=== PATIENT | female | born 1945 | race Caucasian/White ===

== ENCOUNTER → 2018-03-06 | Day surgery (SDC) | payer MEDICARE, BC ==
[2018-03-05 15:06] LABS: BASOPHILS # (AUTO) 0.1 (0.0-0.1); BASOPHILS % 0.5 % (0.0-1.0); EOSINOPHILS # (AUTO) 0.3 (0.0-0.4); EOSINOPHILS % 2.9 % (0.0-6.0); HEMATOCRIT 43.5 % (34.2-44.1); HEMOGLOBIN 14.6 g/dL (12.0-16.0); LYMPHOCYTES # (AUTO) 0.9 (1.0-3.2); LYMPHOCYTES % 8.6 % (18.0-39.1); MEAN CORPUSCULAR HGB CONC 33.6 g/dL (31-35); MEAN CORPUSCULAR VOLUME 92.4 fL (81-99); MONOCYTES # (AUTO) 0.8 (0.2-0.8); MONOCYTES % 7.2 % (4.4-11.3); NEUTROPHILS # (AUTO) 8.8 (2.1-6.9); NEUTROPHILS % 80.4 % (38.7-80.0); PLATELET COUNT 249 x10e3/uL (140-360); RED BLOOD COUNT 4.71 x10e6/uL (3.6-5.1); RED CELL DISTRIBUTION WIDTH 13.3 % (11.7-14.4)
[2018-03-05 15:18] LABS: ALBUMIN 3.7 g/dL (3.5-5.0); ALBUMIN/GLOBULIN RATIO 0.9 (0.8-2.0); ANION GAP 15.7 mmol/L (8-16); CALCIUM 10.6 mg/dL (8.4-10.2); CHOL/HDL RATIO 5.4 (3.0-3.6); CREATININE, SERUM 1.67 mg/dL (0.57-1.11); POTASSIUM 4.7 mmol/L (3.5-5.1)
[2018-03-06] VITALS (13 sets, daily range): BP systolic 100–138; BP diastolic 45–91
[~2018-03-06] VITALS: Ht 160 cm; Wt 102.1 kg
[~2018-03-06] MED LIST: ALPRAZOLAM 0.5 MG TAB ONE; AMBIEN CR12.5 MG PO; AMBIEN10 MG PO; ARMOUR THYROID60 MG PO; ASPIRIN 325 MG TAB ONE; CLOPIDOGREL BISULFATE 75 MG TAB ONE; DIPHENHYDRAMINE HCL 25 MG CAP ONE; FENTANYL CITRATE/PF 100MCG/2 ML INJ ONE; HEPARIN SOD/SOD CHLORIDE 2,000 ML ONE; IOPAMIDOL 300MG/ML 100 ML INFUS..BTL IV ONE; LIDOCAINE HCL 2% LOCAL 20 ML VIAL ONE; METFORMIN HCL500 MG PO; MIDAZOLAM HCL 2 MG/2 ML VIAL ONE; SODIUM CHLORIDE 0.9% 1000ML 1,000 ML ONE; VERAPAMIL HCL 2.5 MG/ML 2 ML VIAL ONE; WELLBUTRIN XL300 MG PO
--- NOTE | 2018-03-06 15:04 | Operative Report ---
DATE OF PROCEDURE: March 06, 2018 PROCEDURE: Cardiac catheterization report. INDICATIONS: Chest pain and severe aortic stenosis, pending TAVR. PRE-SEDATION ASSESSMENT: Medical history, social history, and previous experience with anesthesia was reviewed as documented in the preoperative record. Results of relevant diagnostic studies were reviewed. Plan, choice of anesthesia, risks, complications, benefits and alternatives were discussed with the patient. CONSENT: The benefits, risks, complications, and alternatives to the procedure were discussed with the patient and informed consent was obtained from patient prior to the procedure. MEDICATIONS: Please see nursing notes for medications administered during the procedure. PROCEDURE: Patient was brought to the cardiac catheterization laboratory in a fasting state. Right wrist was prepped and draped in a sterile fashion, 1% lidocaine was used to infiltrate the right wrist over the right radial artery. A 6-Ivorian sheath was placed in the right radial artery using the Seldinger technique. Coronary angiography was performed using a [employer] preformed catheter to engage both RCA and the LCA. Multiple orthogonal views were obtained of each coronary artery. All catheters were removed over a guidewire. After reviewing the angiographic images, we decided to proceed with a PCI of following lesions. A 90% mid RCA lesion, type B1, for the PCI of the mid RCA. Anticoagulation was achieved using IV and IA boluses of heparin to maintain ACT near 300. Dual antiplatelets were administered in the slab tripper with aspirin 325 and clopidogrel 600 mg orally prior to PCI for the PCI of RCA. Initially we used an Ikari right 6-Ivorian catheter as a guide. We were able to wire the lesion; however, the guide support was very poor and we were not able to pass any of the equipment without guide disengaging. At this point, we decided to change guides to an Ikari left 6-Ivorian guiding catheter which was difficult to engage; however, once engaged, provided excellent support for this case. Lesion was crossed using a Choice PT 0.014-inch wire. Direct stenting was performed using a Synergy 2.5 x 12-mm drug-eluting stent deployed at 11 atmospheres. This provided excellent angiographic results without any complications. The exit site was then closed using a TR Band. ESTIMATED BLOOD LOSS: Approximately 50 mL. SIGNIFICANT FINDINGS 1. Left main coronary artery: Large caliber, normal. 2. LAD: Large vessel, goes to the apex. Diag 1 is a large vessel. There is a 60% lesion of the mid LAD just after the bifurcation of diagonal 1. There is 50% lesion of the distal LAD. 3. Left circumflex: It is a large, codominant left circumflex. There are 2 significant OM branches as well as several posterolateral branches distally. There are luminal irregularities throughout, however no obstructive coronary artery disease. 4. RCA: Large, codominant RCA. There is a medium-sized RPDA system distally and a very small RPL. There is a 90% lesion of the mid RCA just after takeoff of an acute marginal branch. COMPLICATIONS: None. SPECIMEN REMOVED: None. IMPLANTS: Synergy 2.5 x 12 mm drug-eluting stent. ESTIMATED BLOOD LOSS: 50 mL. RECOMMENDATIONS 1. Usual post PCI care until TR Band removal. 2. Transferred to observation for 6 hours post PCI. 3. Patient can be discharged home if recovery period is uneventful. 4. Call the office for followup in 2 weeks post procedure. Job#: [id number] MATTY
== END | disposition home or self-care (01) ==
LOC: CATH LAB 07:56
PROVIDERS: ATTEND Internal Medicine Interventional Cardiology
DX: I25.10 Atherosclerotic heart disease of native coronary artery without angina pectoris (principal); I35.0 Nonrheumatic aortic (valve) stenosis; E11.9 Type 2 diabetes mellitus without complications; F32.9 Major depressive disorder, single episode, unspecified; F41.0 Panic disorder [episodic paroxysmal anxiety]; Z01.812 Encounter for preprocedural laboratory examination; Z79.84 Long term (current) use of oral hypoglycemic drugs; Z68.39 Body mass index [BMI] 39.0-39.9, adult
CPT/HCPCS: 93454; C9600; 36415; 80053; 80061; 82948; 85025; 85347; 92928; C1874; C1887; J2001; J2250; J7030; Q9967

== ENCOUNTER → 2018-06-24 | Outpatient (CLI) | payer MEDICARE, BC ==
[~2018-06-24] MED LIST changes: -ALPRAZOLAM 0.5 MG TAB ONE; -ASPIRIN 325 MG TAB ONE; -CLOPIDOGREL BISULFATE 75 MG TAB ONE; -DIPHENHYDRAMINE HCL 25 MG CAP ONE; -FENTANYL CITRATE/PF 100MCG/2 ML INJ ONE; -HEPARIN SOD/SOD CHLORIDE 2,000 ML ONE; -IOPAMIDOL 300MG/ML 100 ML INFUS..BTL IV ONE; -LIDOCAINE HCL 2% LOCAL 20 ML VIAL ONE; -MIDAZOLAM HCL 2 MG/2 ML VIAL ONE; -SODIUM CHLORIDE 0.9% 1000ML 1,000 ML ONE; -VERAPAMIL HCL 2.5 MG/ML 2 ML VIAL ONE
== END ==
LOC: MRI 09:59
PROVIDERS: ATTEND Internal Medicine Interventional Cardiology
DX: I63.89 Other cerebral infarction (principal)

== ENCOUNTER 2019-09-07 18:18 | Inpatient (IN) | payer MEDICARE, BC ==
[~2019-09-07] VITALS: Ht 160 cm; Wt 94.8 kg
--- OUTSIDE RECORDS SUMMARY | 2019-09-07 18:21 | XMS REPORT | Encounter Summary ---
Author Organization Unknown Address [address] [place] [address] Phone [phone] Care Team Providers Care Labor Commissioner Name Role Phone Dr. Asaf Bishop 3 [phone] Jessica Lau 60 [phone] Mildred Damon MD 108 [phone] Reason for Visit Left knee pain/problem Instructions 1. Influenza vaccination declined 2. Pain in left knee XR, knee, 3 view Discussion Note await xr Patient educational handouts: No information available. Plan of Care Patient Instructions movement within limits pain/prn otc tylenol/advil/rtc 2 weeks if remains symptomatic Reminders Provider Appointments None recorded. Lab None recorded. Referral None recorded. Procedures None recorded. Surgeries None recorded. Imaging XR, Knee, 3 View 07/03/2019 [facility] Medications Name Start Date [employer] Thyroid 60 mg tablet Take 1 tablet every day by oral route for 90 days. bupropion HCl SR 150 mg tablet,12 hr sustained-release Take 1 tablet every day by oral route for 90 days. clopidogrel 75 mg tablet Take 1 tablet every day by oral route for 30 days. dicyclomine 10 mg capsule Take 1 capsule every day by oral route for 90 days. metformin 500 mg tablet Take 1 tablet every day by oral route for 90 days. Uribel 118 mg-10 mg-40.8 mg-36 mg capsule Take 1 tablet every day by oral route as needed for 3 days. zolpidem ER 12.5 mg tablet,extended release,multiphase Take 1 tablet every day by oral route for 90 days. Medications Administered None recorded. Vitals Height Weight BMI Blood Pressure 5 ft 1.6 in (1) 150/70 mm[Hg] (2) 110/70 mm[Hg] Results Lab Results None recorded. Allergies Code Code System Name Reaction Severity Status Onset NKDA Problems Name Status Onset Date Source Hypothyroidism Active 09/06/2018 Type 2 Diabetes Mellitus Active 09/06/2018 Chronic Fatigue Syndrome Active 09/06/2018 Insomnia Active 09/06/2018 Diverticulosis of Intestine Active 09/06/2018 Procedures Date Name Performed by 06/13/2018 Transcatheter Aortic Valve Replacement Information not available 08/13/2017 Cardiac Surgery Information not available Colonoscopy with Biopsy Information not available 07/03/2019 XR, Knee, 3 View [facility] [place] [address] [place] [address] (Work Place) Vaccine List Vaccine Type pneumococcal, unspecified formulation 05/13/2018 Social History Tobacco Smoking Status Never Smoker Past Encounters 07/03/2019 Influenza Vaccination Declined; Pain in Left Knee Mike Mixon MD: [address] [place] [address], Ph. History of Present Illness Note:2 week h/o L knee pain /swelling,no associated trauma,the swelling has resolved<div>with pain 7/10 on standing and palpation,has not reqd pain meds< /div> Review of Systems:ROS as noted in the HPI Review of Systems None recorded. Physical Exam Musculoskeletal and Joint Exam Reported By: Patient Musculoskeletal System: Left Knee: pain on palpation; tender 1+ medial tibial condyle
--- OUTSIDE RECORDS SUMMARY | 2019-09-07 18:21 | XMS REPORT ---
Author Author [facility] Address Unknown Phone Unavailable Care Team Providers Care Contractor General Building Name Role Phone Unavailable Unavailable Problems This patient has no known problems. Allergies, Adverse Reactions, Alerts This patient has no known allergies or adverse reactions. Medications This patient has no known medications. Encounters Start Date/Time End Date/Time Encounter Type Admission Type Attending Clinicians Care Facility Care Department Encounter ID 2019-09-05 18:18:00 2019-09-05 18:18:00 Outpatient E [facility] [id number]
--- OUTSIDE RECORDS SUMMARY | 2019-09-07 18:21 | XMS REPORT | Encounter Summary ---
Author Organization Unknown Address [address] [place] [address] Phone [phone] Care Team Providers Care Geodesist Name Role Phone Dr. Asaf Bishop 3 [phone] Jessica Lau 60 [phone] Mildred Damon MD 108 [phone] Reason for Visit diabetic foot exam; Left toe problem; AWV Annual Wellness Visit Female (VFP); mass Instructions 1. Adult health examination 2. Body mass index 40+ - severely obese body mass index: care instructions learning about healthy weight 3. Advance directive discussed with patient advance care planning: care instructions 4. Depression screening 5. Alcohol consumption screening learning about alcohol misuse 6. Insomnia 7. Onychomycosis of toenails Penlac 8 % topical solution 8. Type 2 diabetes mellitus diabetic ophthalmology referral - please schedule & contact our patient./FX RESULTS TO [phone]. Thank you CMP, serum or plasma lipid panel, serum HbA1c (hemoglobin A1c), blood 9. Screening mammography mammogram: about this test MAMMO, screening, digital, bilateral - please schedule & contact our patietn. thank you 10. Postmenopausal state learning about healthy weight bone density referral - please schedule & contact our patietn. thank you 11. Screening for disorder hepatitis C virus RNA, quant, PCR, serum or plasma 12. Screening for malignant neoplasm of colon 13. Lipoma of skin 14. At risk for falls preventing falls: care instructions Discussion Note: None recorded. Plan of Care Reminders Provider Appointments Return to Office on or around 12/04/2018 Asaf Maloney MD Lab CMP, Serum or Plasma 09/06/2018 [facility] Lipid Panel, Serum 09/06/2018 [facility] HbA1C (Hemoglobin a1C), Blood 09/06/2018 [facility] Hepatitis C Virus RNA, Quant, PCR, Serum or Plasma 09/06/2018 [facility] Referral Bone Density Referral 09/06/2018 [facility] Diabetic Ophthalmology Referral 09/06/2018 [facility] Procedures None recorded. Surgeries None recorded. Imaging MAMMO, Screening, Digital, Bilateral 09/06/2018 [facility] Medications Name Start Date [place] Thyroid 60 mg tablet Take 1 tablet every day by oral route for 90 days. clopidogrel 75 mg tablet Take 1 tablet every day by oral route for 30 days. metformin 500 mg tablet Take 1 tablet every day by oral route for 90 days. Penlac 8 % topical solution APPLY TO THE AFFECTED AREA(S) BY TOPICAL ROUTE ONCE DAILY PREFERABLY AT BEDTIME OR 8 HOURS BEFORE WASHING zolpidem ER 12.5 mg tablet,extended release,multiphase Take 1 tablet every day by oral route for 90 days. Medications Administered None recorded. Vitals Height Weight BMI Blood Pressure 5 ft 1.6 in 220 lbs 40.8 kg/m2 (1) 144/80 mm[Hg] (2) 126/70 mm[Hg] Lab Results None recorded. Allergies Code Code System Name Reaction Severity Status Onset NKDA Problems Name Status Onset Date Source Hypothyroidism Active 09/06/2018 Type 2 Diabetes Mellitus Active 09/06/2018 Chronic Fatigue Syndrome Active 09/06/2018 Insomnia Active 09/06/2018 Diverticulosis of Intestine Active 09/06/2018 Procedures Date Name Performed by 06/13/2018 Transcatheter Aortic Valve Replacement Information not available 08/13/2017 Cardiac Surgery Information not available 08/13/2016 Colonoscopy with Biopsy Information not available 09/06/2018 MAMMO, Screening, Digital, Bilateral [facility] [address] [place] [address] (Work Place) Vaccine List Vaccine Type pneumococcal, unspecified formulation 05/13/2018 Social History Smoking Status Never Smoker Past Encounters 09/06/2018 Adult Health Examination; Body Mass Index 40+ - Severely Obese; Advance Directive Discussed with Patient; Depression Screening; Alcohol Consumption Screening; Insomnia; Onychomycosis of Toenails; Type 2 Diabetes Mellitus; Screening Mammography; Postmenopausal State; Screening for Disorder; Screening for Malignant Neoplasm of Colon; Lipoma of Skin; At Risk for Falls Asaf Maloney MD: [address] [place] [phone], Ph. History of Present Illness Mini Cog Reported By: Patient Functional Ability: Personal/Social/ Draw a clock and write in the numbers in the correct place, and set the time to 10 minutes after 11 o'clock was completed correctly? Yes, 3 word recall: Your nurse or doctor will ask you to remember 3 words. In 5 minutes, they will ask you to repeat them. Patient recalled 2 words Note:Coming to establish care. Hx of dm. Last a1c 7.2 (3 months ago). BS at home 120s fasting. No side effects with meds.<div>Mass in the L side of the abdomen since 1 week ago. Non tender. No erythema.</div><div>L great toenail white spot since a few months ago.</div> Review of Systems Comprehensive General Adult ROS Reported By: Patient Constitutional: Constitutional: no fever Eyes: Eyes: no vision change ENMT: Ears: no ear pain. Nose: no sinus problems. Mouth/Throat: no sore throat Cardiovascular: Cardiovascular: no chest pain, no palpitations, no lightheadedness Respiratory: Respiratory: no cough, no wheezing, no shortness of breath Gastrointestinal: Gastrointestinal: no abdominal pain, no nausea, no vomiting, no constipation, no diarrhea Musculoskeletal: Musculoskeletal: no muscle aches, no swelling in the extremities Integumentary: Skin: growths/lesions Neurologic: Neurologic: no loss of consciousness, no headaches Psychiatric: Psych: no depression, no alcohol abuse, no anxiety, no suicidal thoughts Endocrine: Endocrine: no fatigue Physical Exam General Adult Exam (male) Reported By: Patient Constitutional: General Appearance: healthy-appearing, morbidly obese. Level of Distress: NAD. Ambulation: ambulating normally Psychiatric: Insight: good judgement. Mental Status: active and alert, normal mood, normal affect. Orientation: to time, to place, to person. Memory: recent memory normal, remote memory normal Eyes: Lids and Conjunctivae: non-injected, no discharge. EOM: EOMI ENMT: Ears: TMs clear. Nose: no sinus tenderness. Lips, Teeth, and Gums: no mouth or lip ulcers. Oropharynx: moist mucous membranes Neck: Neck: supple, trachea midline. Thyroid: no enlargement, non-tender Lungs: Auscultation: breath sounds normal Cardiovascular: Heart Auscultation: RRR, normal S1, normal S2, no murmurs. Neck vessels: no carotid bruits. Pulses including femoral / pedal: normal throughout Abdomen: Inspection and Palpation: soft, non-distended, no tenderness, no guarding Musculoskeletal:: Motor Strength and Tone: normal, normal tone. Joints, Bones, and Muscles: normal movement of all extremities. Extremities: no edema Neurologic: Gait and Station: normal gait Skin: Inspection and palpation: no rash, no lesions; L side of the abdomen: superficial mass, 2 cms in diameter, soft, mobile, non tender. Nails: ; L great toe onychomycosis
[2019-09-07] MEDS ORDERED: MOBIC15 MG PO (18:37)
[2019-09-07] MEDS ORDERED: CLOPIDOGREL75 MG PO (18:37)
[2019-09-07] MEDS ORDERED: CYCLOBENZAPRINE10 MG PO (18:37)
[2019-09-07] MEDS ORDERED: ZOLPIDEM TART12.5 MG PO (18:37)
[2019-09-07] MEDS ORDERED: DICYCLOMINE HCL10 MG PO (18:37)
[2019-09-07] MEDS ORDERED: ASPIR 8181 MG PO (18:41)
[2019-09-07] MEDS ORDERED: ATORVASTATIN CA20 MG PO (18:41)
[2019-09-07] MEDS ORDERED: AMLODIPINE BESYL5 MG PO (18:41)
[2019-09-07] MEDS ORDERED: PANTOPRAZOLE 40 MG 10ML VIAL IV STA (18:45)
[2019-09-07] MEDS ORDERED: SODIUM CHLORIDE 0.9% 1000ML 1,000 ML IV STA (18:45)
[2019-09-07 18:57] LABS: BASOPHILS % 0.3 % (0.0-1.0); EOSINOPHILS # (AUTO) 0.1 (0.0-0.4); HEMATOCRIT 37.6 % (34.2-44.1); LYMPHOCYTES # (AUTO) 0.6 (1.0-3.2); LYMPHOCYTES % 4.9 % (18.0-39.1); MEAN CORPUSCULAR HGB CONC 31.9 g/dL (31-35); MONOCYTES # (AUTO) 0.7 (0.2-0.8); MONOCYTES % 5.9 % (4.4-11.3); NEUTROPHILS # (AUTO) 10.6 (2.1-6.9); NEUTROPHILS % 87.5 % (38.7-80.0); PLATELET COUNT 223 x10e3/uL (140-360); RED CELL DISTRIBUTION WIDTH 13.8 % (11.7-14.4)
[2019-09-07 19:30] LABS: INR 0.92; PROTHROMBIN TIME 12.9 seconds (11.9-14.5)
[2019-09-07 19:31] LABS: PARTIAL THROMBOPLASTIN TIME 25.2 seconds (23.8-35.5)
[2019-09-07 19:32] LABS: ALBUMIN 3.3 g/dL (3.5-5.0); ALBUMIN/GLOBULIN RATIO 1.1 (0.8-2.0); ANION GAP 16.2 mmol/L (8-16); CALCIUM 9.3 mg/dL (8.4-10.2); CREATININE, SERUM 1.64 mg/dL (0.57-1.11); POTASSIUM 4.2 mmol/L (3.5-5.1)
[2019-09-07] MEDS: SODIUM CHLORIDE 0.9% 1000ML 1,000 ML IV SCH (20:50)
[2019-09-07 20:55] LABS: BILIRUBIN,URINE NEGATIVE (NEGATIVE); CLARITY,URINE CLEAR (CLEAR); COLOR,URINE YELLOW (YELLOW); KETONES,URINE NEGATIVE (NEGATIVE); LEUKOCYTE ESTERASE ,URINE NEGATIVE (NEGATIVE); NITRITE,URINE NEGATIVE (NEGATIVE); PROTEIN,URINE DIPSTICK NEGATIVE (NEGATIVE); URINE UROBILINOGEN 0.2 mg/dL (0.2 - 1)
[2019-09-07 21:18] LABS: BACTERIA,URINE RARE /HPF; EPITHELIAL CELLS,URINE RARE /LPF; RBC,URINE 0-5 /HPF (0-5); WBC,URINE (MAN) 0-5 /HPF (0-5)
[2019-09-08] VITALS (8 sets, daily range): BP systolic 127–172; BP diastolic 69–78
[2019-09-08 02:01] LABS: HEMATOCRIT 31.1 % (34.2-44.1); HEMOGLOBIN 10.1 g/dL (12.0-16.0)
[2019-09-08 05:06] LABS: BASOPHILS % 0.5 % (0.0-1.0); EOSINOPHILS # (AUTO) 0.2 (0.0-0.4); EOSINOPHILS % 2.2 % (0.0-6.0); HEMATOCRIT 34.1 % (34.2-44.1); HEMOGLOBIN 10.8 g/dL (12.0-16.0); MEAN CORPUSCULAR HEMOGLOBIN 29.8 pg (28-32); MEAN CORPUSCULAR HGB CONC 31.7 g/dL (31-35); MEAN CORPUSCULAR VOLUME 94.2 fL (81-99); MONOCYTES # (AUTO) 0.7 (0.2-0.8); MONOCYTES % 8.5 % (4.4-11.3); NEUTROPHILS # (AUTO) 6.4 (2.1-6.9); NEUTROPHILS % 76.4 % (38.7-80.0); PLATELET COUNT 207 x10e3/uL (140-360); RED BLOOD COUNT 3.62 x10e6/uL (3.6-5.1); RED CELL DISTRIBUTION WIDTH 13.8 % (11.7-14.4)
[2019-09-08 05:19] LABS: ANION GAP 15.5 mmol/L (8-16); CREATININE, SERUM 1.44 mg/dL (0.57-1.11); POTASSIUM 4.5 mmol/L (3.5-5.1)
[2019-09-08] MEDS: SODIUM CHLORIDE 0.9% 1000ML 1,000 ML IV SCH ×3 (05:33→17:52)
--- NOTE | 2019-09-08 07:00 | NUR ---
BEDSIDE SHIFT REPORT RECEIVED FROM THE CROP SETTING OUT MACHINE OPERATOR RN. EDUCATED PT ABOUT FALL PRECAUTIONS. CALL LIGHT WITH IN EASY REACH. INSTRUCTED PT TO USE CALL LIGHT FOR ALL THE NEEDS. PT VERBALIZED UNDERSTANDING. . BED IS LOW AND LOCKED. SIDE RAILS X2. BED ALARM IS ON. PT DENIES NEEDS AT THIS TIME. Addendum: 09/08/19 at 1522 by Gregory Brady RN PLEASE DISREGARD THIS NOTE. WRONG PT
--- NOTE | 2019-09-08 07:13 | NUR ---
received report from MELIDA Suh, will continue to monitor.
--- NOTE | 2019-09-08 09:00 | NUR ---
PT RECEIVED FROM ER. MARIE. EDUCATED PT ABOUT FALL PRECAUTIONS. CALL LIGHT WITH IN EASY REACH. INSTRUCTED PT TO USE CALL LIGHT FOR ALL THE NEEDS. PT VERBALIZED UNDERSTANDING. FAMILY MEMBER AT BEDSIDE. BED IS LOW AND LOCKED. SIDE RAILS X2. PT DENIES NEEDS AT THIS TIME.
[2019-09-08] MEDS: PANTOPRAZOLE 40 MG 10ML VIAL IV SCH ×2 (09:12→17:52)
--- NOTE | 2019-09-08 10:00 | NUR ---
DR. Moira JOHNSON AT BEDSIDE.
--- NOTE | 2019-09-08 10:15 | NUR ---
PAGED DR. Trevon JOHNSON. COLONOSCOPY TOMORROW. START GO LYTELY NOW PER THE DR. MUSE LIQUID DIET.
[2019-09-08] MEDS ORDERED: DEXTROSE 50% SYRINGE 50 ML IV PRN (10:30)
[2019-09-08] MEDS ORDERED: PEG (High)/E-LYTE SOLN 4,000 ML BTL PO ONE (11:00)
[2019-09-08] MEDS: INSULIN REGULAR, HUMAN 100 UNIT/1 ML 3ML VIAL SQ SCH ×3 (11:30→21:00)
--- NOTE | 2019-09-08 14:54 | NUR ---
JORGE MCFADDEN OBTAINED SIGNATURES AND PROVIDED LESA, WILL TURN INTO PACU FOR FILING PURPOSES
[2019-09-08 16:16] LABS: HEMATOCRIT 35.2 % (34.2-44.1); HEMOGLOBIN 11.2 g/dL (12.0-16.0)
--- NOTE | 2019-09-08 19:00 | NUR ---
BEDSIDE SHIFT REPORT GIVEN TO THE CLEAN ROOM OPERATOR RN. PT DENIED FURTHER NEEDS.
[2019-09-08] MEDS: ATORVASTATIN 20 MG TAB PO SCH (21:00)
[2019-09-09] MEDS: SODIUM CHLORIDE 0.9% 1000ML 1,000 ML IV SCH ×3 (03:04→20:56)
[2019-09-09 04:40] VITALS: BP 128/62
--- NOTE | 2019-09-09 07:00 | NUR ---
BEDSIDE SHIFT REPORT RECEIVED FROM THE REPAIRER PUMP RN. EDUCATED PT ABOUT FALL PRECAUTIONS. CALL LIGHT WITH IN EASY REACH. INSTRUCTED PT TO USE CALL LIGHT FOR ALL THE NEEDS. PT VERBALIZED UNDERSTANDING. BED IS LOW AND LOCKED. SIDE RAILS X2. PT DENIES NEEDS AT THIS TIME.
[2019-09-09] MEDS ORDERED: CITRATE OF MAGNESIA 300ML BOTTLE PO ONE (07:30)
[2019-09-09] MEDS: INSULIN REGULAR, HUMAN 100 UNIT/1 ML 3ML VIAL SQ SCH ×4 (07:30→21:00)
[2019-09-09 08:00] VITALS: BP 136/61
[2019-09-09] MEDS: PANTOPRAZOLE 40 MG 10ML VIAL IV SCH ×2 (08:04→17:44)
[2019-09-09 08:22] VITALS: BP 136/61
--- NOTE | 2019-09-09 11:00 | NUR ---
RAC IV REMOVED DUE TO LEAKING. NEW IV STARTED BY OUTBOARD MOTOR INSPECTOR RIGHT FORE ARM 20 G. PT DENIED FURTHER NEEDS.
[2019-09-09 12:00] VITALS: BP 166/87
--- NOTE | 2019-09-09 12:30 | NUR ---
PT OFF UNIT FOR PROCEDURE IN SAFE CONDITION.
[2019-09-09] MEDS ORDERED: LIDOCAINE HCL 2% LOCAL INJ 5 ML SDV VIAL INJ ONE (12:50)
[2019-09-09] MEDS ORDERED: PROPOFOL IV EMULSION 10 MG/ML 20 ML VIAL ONE (12:50)
--- NOTE | 2019-09-09 14:00 | NUR ---
RIGHT FORE ARM IV REMOVED. TIP INTACT . DRESSING APPLIED. NEW IV STARTED LH 20G. PT DENIED FURTHER NEEDS.
--- NOTE | 2019-09-09 15:03 | NUR ---
PT BACK TO UNIT AFTER PROCEDURE. GI SOFT DIET PER DR. Trevon JOHNSON.
[2019-09-09 16:00] VITALS: BP 153/85
--- NOTE | 2019-09-09 16:30 | NUR ---
PT IS SHIVERING AT THE TIME OF ARRIVAL AFTER COLONOSCOPY. PAGED DR. JOHNSON AND INFORMED THE SAME.
[2019-09-09] MEDS: METFORMIN HCL 500 MG TAB PO SCH (16:35)
[2019-09-09] MEDS: DICYCLOMINE HCL 10 MG CAP PO SCH (16:36)
[2019-09-09] MEDS: THYROID 60 MG TAB PO SCH (16:36)
--- NOTE | 2019-09-09 19:00 | NUR ---
BEDSIDE SHIFT REPORT GIVEN TO THE GRAPHICS SOFTWARE ENGINEER RN. PT DENIED FURTHER NEEDS.
[2019-09-09] MEDS ORDERED: FENTANYL CITRATE/PF 100MCG/2 ML INJ IV ONE (19:08)
[2019-09-09] MEDS ORDERED: MIDAZOLAM HCL 2 MG/2 ML VIAL INJ ONE (19:08)
[2019-09-09] MEDS: ATORVASTATIN 20 MG TAB PO SCH (19:39)
[2019-09-09 20:00] VITALS: BP 169/85
--- NOTE | 2019-09-09 21:04 | Operative Report ---
DATE OF PROCEDURE: 09/09/2019 SURGEON: Franco Garcia MD PROCEDURES: EGD with biopsies and colonoscopy with polypectomy and biopsies. INDICATION FOR EGD: Heartburn, indigestion, history of dark stools. INDICATIONS FOR COLONOSCOPY: Rectal bleeding. MEDICATIONS: The patient was done under MAC, please see anesthesiologist's note. PROCEDURE IN DETAIL: With the patient in the left lateral decubitus position, a flexible fiberoptic Olympus gastroscope was introduced into the esophagus under direct visualization without any difficulty. There was some patchy erythema noted in distal esophagus. A Schatzki ring was noted at the GE junction that was traversed with ease and the scope was advanced into the stomach traversing a small hiatal hernia. The mucosa overlying the antrum and the body revealed some patchy erythema and moderate edema, and biopsies were obtained and sent to stain for H. pylori. The pylorus was of normal contour and shape, was intubated with ease and the scope was advanced all the way to the second portion of the duodenum. Biopsies were obtained from the proximal second portion and duodenal bulb to rule out sprue. The scope was then withdrawn back into the stomach and retroflexed, and mucosa overlying the fundus and the cardia appeared to be within normal limits. The scope was then straightened out, it was subsequently withdrawn, and the patient tolerated the procedure well. IMPRESSION: 1. Distal esophagitis. 2. Schatzki ring. 3. Small hiatal hernia. 4. Gastritis, biopsied, biopsies sent to stain for Helicobacter pylori. 5. Rule out sprue. PLAN: Follow up histology. Initiate Protonix 40 mg 1 p.o. q.a.m. before meals. The patient was then turned around and after adequate lubrication of the anal canal, a flexible fiberoptic Olympus colonoscope was inserted into the rectum with ease and advanced all the way to the cecum. The ileocecal valve was somewhat lobular and was biopsied. The cecum overall appeared to be within normal limits. An approximately 1.2 cm submucosal mass noted in the proximal ascending colon with yellowish over hue, suspicious for lipoma and was biopsied. A minute polyp in the proximal ascending colon was removed per hot biopsy forceps and the site was hemoclipped x1. Diverticular disease was noted throughout the colon including ascending colon, transverse, descending, and sigmoid. An approximately 1 cm sessile polyp was removed per snare electrocautery from the descending colon. The rectum grossly appeared to be within normal limits. The scope was then retroflexed into the distal rectum and small internal hemorrhoids were noted, none of which was actively bleeding. The scope was then straightened out, it was subsequently withdrawn, and the patient tolerated the procedure well. IMPRESSION: 1. Pandiverticulosis. 2. Rule out lipoma, ileocecal valve. 3. Rule out lipoma, ascending colon. 4. Ascending colon polyp, hot biopsied and site hemoclipped x1. 5. Descending colon polyp approximately 1 cm in size, sessile, removed per snare electrocautery. 6. Internal hemorrhoids, none actively bleeding. PLAN: Follow up histology. Initiate high-fiber, low-fat diet. Initiate high-fiber supplement. Timing of followup colonoscopy pending pathology report. Franco Garcia MD [facility] [place] /[id number] cc: Edgar Garcia MD
[2019-09-10] VITALS: BP 121/61
[2019-09-10] MEDS: SODIUM CHLORIDE 0.9% 1000ML 1,000 ML IV SCH (03:20)
[2019-09-10 04:00] VITALS: BP 119/56
--- NOTE | 2019-09-10 07:00 | NUR ---
BEDSIDE SHIFT REPORT RECEIVED FROM THE PREMIUM CARD CANCELLATION CLERK RN. EDUCATED PT ABOUT FALL PRECAUTIONS. CALL LIGHT WITH IN EASY REACH. INSTRUCTED PT TO USE CALL LIGHT FOR ALL THE NEEDS. PT VERBALIZED UNDERSTANDING. BED IS LOW AND LOCKED. SIDE RAILS X2. FAMILY MEMBER AT BEDSIDE. PT DENIES NEEDS AT THIS TIME.
[2019-09-10] MEDS: INSULIN REGULAR, HUMAN 100 UNIT/1 ML 3ML VIAL SQ SCH ×2 (07:30→11:30)
[2019-09-10 08:00] VITALS: BP 160/75
--- NOTE | 2019-09-10 08:00 | NUR ---
PT REFUSED INSULIN AND IV FLUIDS.
[2019-09-10 08:22] VITALS: BP 160/75
[2019-09-10] MEDS: THYROID 60 MG TAB PO SCH (09:22)
[2019-09-10] MEDS: METFORMIN HCL 500 MG TAB PO SCH (09:22)
[2019-09-10] MEDS: DICYCLOMINE HCL 10 MG CAP PO SCH (09:22)
[2019-09-10] MEDS: PANTOPRAZOLE 40 MG 10ML VIAL IV SCH (09:22)
--- NOTE | 2019-09-10 11:04 | NUR ---
IMM letter delivered and explained to pt. She verbalized understanding. Signed copy placed in chart. Copy to pt.
[2019-09-10 12:00] VITALS: BP 142/67
[2019-09-10] MEDS ORDERED: PANTOPRAZOLE SO40 MG PO (13:52)
--- NOTE | 2019-09-10 14:07 | NUR ---
MELLO TO D/C PT PER DR. Moira JOHNSON AND DR. Paulo JOHNSON.
--- NOTE | 2019-09-10 14:30 | NUR ---
PT DISCHARGED HOME SAFELY WITH FAMILY MEMBER. TELEMETRY AND IV REMOVED, TIP INTACT. DRESSING APPLIED. RX GIVEN. DISCHARGE INSTRUCTIONS GIVEN AND PATIENT VERBALIZED UNDERSTANDING. PT ESCORTED VIA WHEEL CHAIR TO THE PRIVATE AUTO AT THE FRONT ENTRANCE. PT DENIED FURTHER NEEDS.
== END 2019-09-10 14:52 | disposition home or self-care (01) | DRG 378 ==
LOC: ER 18:18 → ERHOLD 19:36 → MED/SURG2 09-08 08:45
PROC: 0DBC8ZX Excision of Ileocecal Valve, Via Natural or Artificial Opening Endoscopic, Diagnostic (ICD-10-PCS; 2019-09-09)
PROC: 0DBM8ZX Excision of Descending Colon, Via Natural or Artificial Opening Endoscopic, Diagnostic (ICD-10-PCS; 2019-09-09)
PROC: 0DB78ZX Excision of Stomach, Pylorus, Via Natural or Artificial Opening Endoscopic, Diagnostic (ICD-10-PCS; principal; 2019-09-09 13:00)
PROC: 0DBK8ZX Excision of Ascending Colon, Via Natural or Artificial Opening Endoscopic, Diagnostic (ICD-10-PCS; 2019-09-09 13:00)
DX: K29.61 Other gastritis with bleeding (principal); D62 Acute posthemorrhagic anemia; K57.30 Diverticulosis of large intestine without perforation or abscess without bleeding; D12.2 Benign neoplasm of ascending colon; D12.4 Benign neoplasm of descending colon; K52.9 Noninfective gastroenteritis and colitis, unspecified; K31.89 Other diseases of stomach and duodenum; K20.9 Esophagitis, unspecified; K22.2 Esophageal obstruction; K29.70 Gastritis, unspecified, without bleeding; D50.0 Iron deficiency anemia secondary to blood loss (chronic); K44.9 Diaphragmatic hernia without obstruction or gangrene; K64.8 Other hemorrhoids; I12.9 Hypertensive chronic kidney disease with stage 1 through stage 4 chronic kidney disease, or unspecified chronic kidney disease; Z83.3 Family history of diabetes mellitus; Z82.49 Family history of ischemic heart disease and other diseases of the circulatory system; N18.9 Chronic kidney disease, unspecified; E11.9 Type 2 diabetes mellitus without complications; I25.10 Atherosclerotic heart disease of native coronary artery without angina pectoris; Z95.2 Presence of prosthetic heart valve; Z79.82 Long term (current) use of aspirin; Z79.84 Long term (current) use of oral hypoglycemic drugs
CPT/HCPCS: 36415; 43239; 45378; 80048; 80053; 81001; 82948; 85014; 85018; 85025; 85610; 85730; 86850; 86900; 88305; 88312; 93005; 96374; 99284; J1817; J2001; J2250; J3010; J7030